=== PATIENT | female | born 1990 | race American Indian/Alaskan Native ===

== ENCOUNTER 2018-01-10 11:21 | Emergency (ER) | payer OTHER ==
[2018-01-10] MEDS ORDERED: ROCEPHIN IM ONE (14:27)
[2018-01-10] MEDS ORDERED: ZITHROMAX PO ONE (14:27)
[2018-01-10] MEDS ORDERED: XYLOCAINE 1% MPF 5 mL INFILTRATI ONE (14:27)
[2018-01-10] MEDS ORDERED: FLAGYL PO ONE (14:27)
--- NOTE | 2018-01-10 14:32 | Emergency Department Report ---
Chief Complaint: Urogenital-Female Stated Complaint: LOWER THIGH PAIN Time Seen by Provider: 01/10/18 14:26 - HPI History of Present Illness: The patient is a 27-year-old female presents for evaluation of vaginal pain and irritation. The patient reports 2-3 days of vaginal burning, itchy, it cramping , mild, and associated with intermittent white vaginal discharge. She shares that she was informed by sexual contact that they were positive for Trichomonas. The patient denies fever, abdominal pain, back pain, chills, night sweats, diarrhea, blood in the stool, dark tarry stool, dysuria, hematuria, flank pain, inability to pass flatus. - Exam Vital Signs: Vital Signs 01/10/18 11:25 Temperature 98.4 F Pulse Rate 80 Respiratory 18 Rate Blood Pressure 107/74 O2 Sat by Pulse 98 Oximetry MSE screening note: Focused history and physical exam performed. Due to findings the following was ordered: ED Disposition for MSE Condition: Stable Referrals: PRIMARY CARE, [Primary Care Provider] - 3-5 Days
[2018-01-10 14:56] LABS: Bilirubin,Urine NEG (Negative); Blood,Urine NEG (Negative); Color,Urine Straw (Yellow); Mucus,Urine FEW /HPF; Protein,Urine <15 mg/dL mg/dL (Negative); Urobilinogen,Urine < 2.0 mg/dL (<2.0)
[2018-01-10 15:00] LABS: HCG Qualitative,Urine Negative (Negative)
--- NOTE | 2018-01-10 17:42 | Emergency Department Report ---
ED Female HPI - General Chief complaint: Urogenital-Female Stated complaint: LOWER THIGH PAIN Time Seen by Provider: 01/10/18 14:26 Source: patient Mode of arrival: Ambulatory Limitations: No Limitations - History of Present Illness Initial comments: This is a 27-year-old -[place] female presents with white discharge for 2 days. Patient reports began recently exposed to STD and concerned this potentially could be STD. She is having vaginal pain and irritation. The patient reports 2-3 days of vaginal burning, itchy, cramping, mild, and associated with intermittent white vaginal discharge. She shares that she was informed by sexual contact that they were positive for Trichomonas. The patient denies fever, abdominal pain, back pain, chills, night sweats, diarrhea, blood in the stool, dark tarry stool, dysuria, hematuria, flank pain, inability to pass flatus. MD Complaint: vaginal discharge -: days(s) (3 days) Location: labia Radiation: non-radiating Severity: mild Severity scale (0 -10): 0 Consistency: intermittent Improves with: none Worsens with: none Are you Now?: No Associated Symptoms: vaginal discharge - Related Data Sexually active: Yes Home Medications Medication Instructions Recorded Confirmed Last Taken No Known Home Medications [No 01/10/18 01/10/18 Unknown Reported Home Medications] Allergies Allergy/AdvReac Type Severity Reaction Status Date / Time No Known Allergies Allergy Unverified 01/10/18 11:25 ED Review of Systems ROS: Stated complaint: LOWER THIGH PAIN Other details as noted in HPI Constitutional: denies: chills, fever Respiratory: denies: cough, shortness of breath, wheezing Cardiovascular: denies: chest pain, palpitations Gastrointestinal: denies: abdominal pain, nausea, vomiting, diarrhea Genitourinary: discharge (the white discharge). denies: urgency, dysuria Musculoskeletal: denies: back pain, joint swelling, arthralgia Skin: denies: rash, lesions Neurological: denies: headache, weakness, paresthesias Psychiatric: denies: anxiety, depression ED Past Medical Hx - Past Medical History Previous Medical History?: No - Surgical History Past Surgical History?: No - Social History Smoking Status: Never Smoker Substance Use Type: None - Medications Home Medications: Home Medications Medication Instructions Recorded Confirmed Last Taken Type No Known Home Medications [No 01/10/18 01/10/18 Unknown History Reported Home Medications] ED Physical Exam - General Limitations: No Limitations General appearance: alert, in no apparent distress - Respiratory Respiratory exam: Present: normal lung sounds bilaterally. Absent: respiratory distress - Cardiovascular Cardiovascular Exam: Present: regular rate, normal rhythm, normal heart sounds. Absent: systolic murmur, diastolic murmur, rubs, gallop - GI/Abdominal GI/Abdominal exam: Present: soft, normal bowel sounds. Absent: distended, tenderness, guarding, rebound, rigid, organomegaly, mass - Neurological Exam Neurological exam: Present: alert, oriented X3 - Psychiatric Psychiatric exam: Present: normal affect, normal mood - Skin Skin exam: Present: warm, dry, intact, normal color. Absent: rash ED Course Vital Signs 01/10/18 11:25 Temperature 98.4 F Pulse Rate 80 Respiratory 18 Rate Blood Pressure 107/74 O2 Sat by Pulse 98 Oximetry ED Medical Decision Making - Medical Decision Making This is a 27 y.o. female presents with vaginal discharge for 2-3 days. Patient was examined by me and Dr. Mcmullen. Vitals are stable. Patient in no acute distress. Obtained a urinalysis and urine hCG. Both labs within normal limits. Discussed results with patient. Patient empirically treated with Rocephin 250 mg IM, metronidazole 2 g, and azithromycin 1 g by mouth in the ER. Discharged home in stable condition. Discussed prevention options. F/U with PCP or Health Department. Critical care attestation.: If time is entered above; I have spent that time in minutes in the direct care of this critically ill patient, excluding procedure time. ED Disposition Clinical Impression: Exposure to STD Disposition: DC-01 TO HOME OR SELFCARE Is pt being admited?: No Does the pt Need Aspirin: No Condition: Stable Instructions: Safe Sex (ED), Sexually Transmitted Diseases (ED) Additional Instructions: Avoid drinking alcohol for 24 hours. Continue safe sexual intercourse. Follow up with Primary Care Provider or health department. Referrals: [facility] [Outside] - 3-5 Days [facility] [Outside] - 3-5 Days [facility] [Outside] - 3-5 Days Forms: Work/School Release Form(ED) Time of Disposition: 17:48 Print Language: [place]
[2018-01-10 17:57] VITALS: BP 116/51
== END 2018-01-10 17:57 | disposition home or self-care (01) ==
LOC: ED 11:21
DX: R10.2 Pelvic and perineal pain (principal); N89.8 Other specified noninflammatory disorders of vagina; Z20.2 Contact with and (suspected) exposure to infections with a predominantly sexual mode of transmission
CPT/HCPCS: 81001; 81025; 96372; 99283; J0696